=== PATIENT | male | born 1985 | race Caucasian/White ===

== ENCOUNTER 2016-07-04 09:48 | Emergency (ER) | payer OTHER ==
[2016-07-04 09:56] VITALS: BP 171/82; PULSE 87; RESP 22; TEMP 98
[2016-07-04] MEDS ORDERED: ORPHENADRINE 30 MG/ML 2 ML VIAL IM STA (10:08)
[2016-07-04] MEDS ORDERED: KETOROLAC 60 MG/2 ML VIAL IM STA (10:08)
--- NOTE | 2016-07-04 10:11 | ED ---
General Adult HPI - General Chief complaint: Extremity Injury, Lower Stated complaint: LEFT LEG PAIN Time Seen by Provider: 07/04/16 09:58 Source: patient, family Mode of arrival: ambulatory Limitations: no limitations - History of Present Illness Initial comments: 30-year-old male patient presents to emergency department today for evaluation of left leg pain. Patient states that pain started on with some lower back discomfort. Patient states the pain now radiates down his left lateral thigh, and is causing some numbness in his left lateral calf. Patient denies any loss of bowel or bladder control. Denies any saddle anesthesia. Denies any fever or chills. He shouldn't denies any history of similar symptoms. Denies any injury or trauma. 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 He states he did lift on , but didn't have any significant back pain during his exercise. He denies any head, neck, chest pain , shortness of breath, dizziness, or weakness. - Related Data Previous Rx's Medication Instructions Recorded Cyclobenzaprine [Flexeril] 10 mg PO TID PRN #15 tab 07/04/16 Hydrocodone/Acetaminophen [Aurora 1 tab PO Q6HR PRN #15 tab 07/04/16 5-325] Ibuprofen [Motrin] 600 mg PO Q8HR PRN #30 tab 07/04/16 methylPREDNISolone [Medrol Dose 4 mg PO DIRECTED #1 pack 07/04/16 Pack] Allergies Allergy/AdvReac Type Severity Reaction Status Date / Time No Known Allergies Allergy Verified 07/04/16 09:56 Review of Systems ROS Statement: Those systems with pertinent positive or pertinent negative responses have been documented in the HPI. ROS Other: All systems not noted in ROS Statement are negative. Past Medical History Past Medical History: No Reported History History of Any Multi-Drug Resistant Organisms: None Reported Additional Past Surgical History / Comment(s): right leg ( infection/operation) Past Psychological History: No Psychological Hx Reported Smoking Status: Never smoker Past Alcohol Use History: None Reported Past Drug Use History: None Reported General Exam Limitations: no limitations General appearance: alert, in no apparent distress Head exam: Present: atraumatic, normocephalic, normal inspection Eye exam: Present: normal appearance, PERRL, EOMI. Absent: scleral icterus, conjunctival injection, periorbital swelling ENT exam: Present: normal exam, mucous membranes moist Neck exam: Present: normal inspection, full ROM. Absent: tenderness, meningismus, lymphadenopathy Respiratory exam: Present: normal lung sounds bilaterally. Absent: respiratory distress, wheezes, rales, rhonchi, stridor Cardiovascular Exam: Present: regular rate, normal rhythm, normal heart sounds. Absent: systolic murmur, diastolic murmur, rubs, gallop, clicks GI/Abdominal exam: Present: soft, normal bowel sounds. Absent: distended, tenderness, guarding, rebound, rigid Extremities exam: Present: normal inspection, full ROM, normal capillary refill , other (Left leg is pink, warm, and dry. Pedal and posttibial pulses intact 2+ . No tenderness to the thigh or calf.). Absent: tenderness, pedal edema, joint swelling, calf tenderness Back exam: Present: normal inspection, full ROM. Absent: tenderness, muscle spasm, vertebral tenderness, rash noted Neurological exam: Present: alert, oriented X3, CN II-XII intact Psychiatric exam: Present: normal affect, normal mood Skin exam: Present: warm, dry, intact, normal color. Absent: rash Course Vital Signs 07/04/16 09:52 Temperature 98.0 F Pulse Rate 87 Respiratory 22 Rate Blood Pressure 171/82 O2 Sat by Pulse 98 Oximetry Medical Decision Making - Medical Decision Making 30-year-old male patient presented for evaluation of left leg pain. Patient physical exam and symptoms are consistent with sciatica. Patient will be given IM injections of Toradol and Norflex while here. Given a prescription to take home of Medrol Dosepak, Motrin, Aurora, and Flexeril. Patient instructed to do warm moist compresses to the area. Patient instructed to gentle stretching exercises. Patient instructed to follow-up with orthopedics if symptoms don't start to improve with medications. Patient also instructed vomit primary care physician in one to 2 days for recheck. Patient checked return for any new, worsening, or concerning symptoms. Disposition Clinical Impression: Sciatica Disposition: HOME SELF-CARE Condition: Stable Instructions: Sciatica (ED) Additional Instructions: Gentle stretching exercises. Plan warm moist heat to the painful area 20 minutes at a time, at least 4 times a day. Follow-up with orthopedics if symptoms don't start to improve. Follow-up with primary care physician in one to days for recheck. Prescriptions: Cyclobenzaprine [Flexeril] 10 mg PO TID PRN #15 tab PRN Reason: Muscle Spasm Hydrocodone/Acetaminophen [Aurora 5-325] 1 tab PO Q6HR PRN #15 tab PRN Reason: Pain Ibuprofen [Motrin] 600 mg PO Q8HR PRN #30 tab PRN Reason: Pain methylPREDNISolone [Medrol Dose Pack] 4 mg PO DIRECTED #1 pack Referrals: None,Stated [Primary Care Provider] - 1-2 days Angélica Armstrong DO [Doctor of Osteopathic Medicine] - 1-2 days Time of Disposition: 10:16
== END 2016-07-04 10:27 | disposition home or self-care (01) ==
LOC: EC 09:48
DX: M54.42 Lumbago with sciatica, left side (principal)
CPT/HCPCS: 99283; 96372 ×2; J2360; J1885